=== PATIENT | male | born 1965 | race Caucasian/White ===

== ENCOUNTER 2018-08-18 15:04 | Outpatient (CLI) | payer OTHER ==
--- NOTE | 2018-08-18 15:27 | RAD ---
XR Heel Rt 2 View STANDARD HISTORY: Right heel pain, plantar fascial fibromatosis. COMPARISON: None. FINDINGS: A plantar calcaneal spur is present. No fracture or bony destruction is seen.
--- NOTE | 2018-08-18 15:28 | RAD ---
XR Heel Lt 2 View STANDARD HISTORY: Left heel pain. Plantar fascial fibromatosis COMPARISON: None. FINDINGS: A small plantar calcaneal spur is present. No fracture or bony destruction is seen. IMPRESSION: No acute process.
--- NOTE | 2018-08-18 15:35 | RAD ---
LEFT FOOT THREE VIEWS: HISTORY: Plantar fascial fibromatosis. Left foot pain. FINDINGS: No fracture, dislocation, or bony destruction is seen. There is a plantar calcaneal spur. POS: DARYA
--- NOTE | 2018-08-18 15:37 | RAD ---
RIGHT FOOT THREE VIEWS: HISTORY: Right foot pain. Plantar fascial fibromatosis. FINDINGS: No fracture, dislocation, or bony destruction is seen. A plantar calcaneal spur is present. POS: DARYA
== END 2018-08-18 15:05 | disposition home or self-care (01) ==
LOC: BICRAD 15:04
PROVIDERS: ATTEND Podiatrist
DX: M99 Biomechanical lesions, not elsewhere classified (principal); M72.2 Plantar fascial fibromatosis; M19.90 Unspecified osteoarthritis, unspecified site; M77.31 Calcaneal spur, right foot; M77.32 Calcaneal spur, left foot